=== PATIENT | male | born 1985 | race Caucasian/White ===

== ENCOUNTER 2018-01-09 12:54 | Emergency (ER) | payer OTHER, BC ==
[~2018-01-09] VITALS: Ht 182.9 cm; Wt 92.6 kg
[~2018-01-09 12:54] MED LIST: HYDR-5688 PO; PRED20TA PO; TEMA15CA4 PO
[2018-01-09 12:58] VITALS: TEMP 37; Ht 182.9 cm; Wt 92.6 kg
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
[2018-01-09 14:13] VITALS: BP 135/78; PULSE 72; O2SAT 95
== END 2018-01-09 14:13 | disposition home or self-care (01) ==
LOC: C.EDB 12:55 → C.EDD 14:13
DX: M79.641 Pain in right hand (principal); M25.531 Pain in right wrist; X58.XXXA Exposure to other specified factors, initial encounter; Y92.149 Unspecified place in prison as the place of occurrence of the external cause; Z90.49 Acquired absence of other specified parts of digestive tract

== ENCOUNTER 2023-08-05 16:07 | Inpatient (IN) ==
--- NOTE | 2023-08-05 16:27 | Emergency Department Note ---
History of Present Illness General Chief complaint: Neck Injury/Pain Stated complaint: NECK PAIN Time Seen by Provider: 08/05/23 16:13 History of Present Illness Maximum Pain Intensity: 4 NAME: JOE LARSEN AGE: 38 SEX: M : 1985 ARRIVES VIA: Walk-In INFORMANT: Patient ED PROVIDER(S): PAVEL Leigh, Paola Alejandro MD The patient is a 38-year-old male who arrives to the emergency department after he was seen here on Monday for a disc protrusion at C6-C7 with severe foraminal narrowing. The patient was offered admission at that time which he declined at the time for hunting, and insurance purposes. He was discharged with a tapering dose of prednisone and follow-up instructions to see Dr. Carey. The patient reports his pain is worsening at this time, he is not able to tolerate it at home. He reports the pain is radiating down the posterior left arm with numbness in his third fourth and fifth digits. The patient states he spoke with his insurance prior to coming in today and had confirmation the procedure would be covered, and is here for admission. Home Medications Medication Instructions Recorded Confirmed Type acetaminophen 325 mg tablet 325 mg PO Q6H PRN Pain 01/06/19 03/08/19 History (Tylenol) albuterol sulfate 90 mcg/actuation 2 puff inhalation DAILY PRN 01/06/19 03/08/19 History aerosol inhaler Shortness Of Breath Or Wheezing gabapentin 300 mg capsule 300 mg PO HS 01/06/19 03/08/19 History hydrocodone 5 mg-acetaminophen 325 0.5 mg PO BID 01/06/19 03/08/19 History mg tablet meloxicam 15 mg tablet 7.5 mg PO DAILY PRN Pain 01/06/19 03/08/19 History prednisone 10 mg tablet See Rx Instructions .Route 07/31/23 Rx .COMPLEX #39 tabs Allergies Allergy/AdvReac Type Severity Reaction Status Date / Time No Known Allergies Allergy Severe Verified 03/08/19 14:01 Past Med/Surg History Medical History (Updated 08/05/23 @ 17:27 by PAVEL Curiel) Asthma Surgical History No pertinent past surgical history Family History Other No pertinent family history Social History Smoking Status: Never smoker Preferred Language: Kiswahili Feels Safe at Home: Yes Physical Exam Vital Signs Vital Signs - 24 hr 08/05/23 16:10 08/05/23 17:09 Temperature 36.8 C Temperature Source Temporal Artery Scan Pulse Rate 89 Pulse Rate [Apical] 77 Respiratory Rate 18 18 Respiratory Effort / Characteristics Non-Labored Spontaneous Respiratory Depth Normal Respiratory Pattern Regular Blood Pressure 145/84 H Blood Pressure [Right Arm] 137/105 H Blood Pressure Mean 104 Blood Pressure Mean [Right Arm] 115 Blood Pressure Position [Right Arm] Sitting Pulse Oximetry 99 97 Oxygen Delivery Method Room Air Room Air Sepsis Recent Fever Within 48 Hours No Sepsis New/Unexplained Change in Mental Status No Sepsis Action Taken by Nursing No Action Required VITALS: Vitals are noted on the nurse's note and reviewed by myself. Vital signs stable. GENERAL: This is a 38-year-old male, in no acute distress, nondiaphoretic, well- developed well-nourished. SKIN: The skin was without rashes, erythema, edema, or bruising. NECK: Supple without nuchal rigidity. No lymphadenopathy. No thyromegaly. Cervical spine is nontender. No JVD. HEART: Regular rate and rhythm without murmurs gallops or rubs. LUNGS: Clear to auscultation bilaterally without wheezes, rales or rhonchi. No dullness to percussion. No retractions or accessory muscle use. ABDOMEN: Positive bowel sounds x 4. Normal tympanic percussion. Soft, nontender, without masses or organomegaly. Cancino sign negative. No guarding or rebound tenderness. MUSCULOSKELETAL: No muscle atrophy, erythema, or edema noted. Limited range of motion left shoulder. Atrophy in triceps muscle, strength 4/5. Normal gait. NEURO: Patient was alert and oriented to person place and time. Decreased sensation posterior left arm to elbow. Numbness and tingling in third fourth and fifth digits. Deep tendon reflexes 2+ throughout. Course Consultations Consultation #1: I spoke with Dr. Carey at this time, who agreed that no reimaging is necessary. I will contact medicine for admission, with a potential procedure Monday. Time: 16:49 Medical Decision Making Differential Diagnosis Cervical strain, fracture, cervical disc disease, lymphadenitis, meningitis, tumor, arterial dissection, thyroiditis, parotitis, mastoiditis, neurologic, cardiovascular, as well as other pathologies. Medical Records Attestation: I reviewed the patient's medical records. Home Medications Current Medication List: was personally reviewed by me Laboratory Data 08/05/23 17:11 08/05/23 17:11 Lab Results 08/05/23 Range/Units 17:11 WBC 9.69 (4.8-10.8) K/ul RBC 4.94 (4.70-6.10) M/uL Hgb 15.1 (14.0-18.0) g/dl Hct 43.6 (42.0-52.0) % MCV 88.3 (80.0-100.0) fL MCH 30.6 (25.0-34.0) pg MCHC 34.6 (32.0-36.0) g/dL RDW Std Deviation 38.1 (36.4-46.3) fL RDW Coeff of Herber 11.9 (11.5-14.5) % Plt Count 297 (130-400) K/uL MPV 9.9 (9.4-12.4) fL Immature Gran % (Auto) 0.3 % Neut % (Auto) 56.8 % Lymph % (Auto) 30.4 % [place] % (Auto) 8.7 % Eos % (Auto) 3.3 % Baso % (Auto) 0.5 % Neut # (Auto) 5.50 (1.40-6.50) K/uL Lymph # (Auto) 2.95 (1.20-3.40) K/uL [place] # (Auto) 0.84 H (0.11-0.59) K/uL Eos # (Auto) 0.32 (0.00-0.50) K/uL Baso # (Auto) 0.05 (0.00-0.20) K/uL Immature Gran # (Auto) 0.03 (0.01-0.20) K/uL MDM Narrative The patient is a 38-year-old male who arrives to the emergency department for the above-stated complaint. The patient was seen here on Monday with a positive work-up for a C6-C7 disc protrusion with central canal foraminal narrowing. Patient was previously offered admission for this work-up on Monday which he declined at the time for multiple reasons. Dr. Carey was contacted after assessment of the patient showed increasing numbness and tingling in the left arm extending to the elbow then continuing again in the third fourth and fifth digits. Patient is also experiencing what he thinks is atrophy in the triceps region of the arm. Dr. Carey agreed no reimaging would be required at this time, as we know the nature of the injury. Dr. Carey agreed the patient should be admitted to medicine for pain control and preoperative studies with a pending procedure Monday. The [facility] hospitalist group was contacted for admission, Dr. Fink will admit the patient at this time. Impression & Plan Cervical disc herniation Discharge Plan Visit Data Chief Complaint: Neck Injury/Pain Stated Complaint: NECK PAIN ED Provider: Paola Alejandro ED Midlevel Provider: Inga Mayfield Discharge Problem: Cervical disc herniation Forms Stand Alone Forms: [facility] [place] [employer] Prescriptions Prescriptions: No Action acetaminophen [Tylenol] 325 mg Tablet 325 mg PO Q6H PRN (Reason: Pain) hydrocodone-acetaminophen 5-325 mg tablet 0.5 mg PO BID meloxicam 15 mg tablet 7.5 mg PO DAILY PRN (Reason: Pain) gabapentin 300 mg capsule 300 mg PO HS albuterol sulfate 90 mcg/actuation HFA aerosol inhaler 2 puff inhalation DAILY PRN (Reason: Shortness Of Breath Or Wheezing) prednisone 10 mg tablet See Rx Instructions .ROUTE .COMPLEX Qty: 39 0RF Rx Instructions: 50mg x3d, 40mg x3d, 30mg x2d, 20mg x2d, 10mg x2d Referrals Referrals: Shaheen Jones MD [Primary Care Provider] -
[2023-08-05 17:22] LABS: Basophils # (auto) 0.05 K/uL (0.00-0.20); Basophils % (auto) 0.5 %; Eosinophils # (auto) 0.32 K/uL (0.00-0.50); Eosinophils % (auto) 3.3 %; Hematocrit (blood only) 43.6 % (42.0-52.0); Hemoglobin 15.1 g/dl (14.0-18.0); Immature Granulocytes # (auto) 0.03 K/uL (0.01-0.20); Immature Granulocytes % (auto) 0.3 %; Lymphocytes # (auto) 2.95 K/uL (1.20-3.40); Lymphocytes % (auto) 30.4 %; Mean Corpuscular Hemoglobin 30.6 pg (25.0-34.0); Mean Corpuscular Hgb Conc 34.6 g/dL (32.0-36.0); Mean Corpuscular Volume 88.3 fL (80.0-100.0); Mean Platelet Volume 9.9 fL (9.4-12.4); Monocytes # (auto) 0.84 K/uL (0.11-0.59); Monocytes % (auto) 8.7 %; Neutrophils % (auto) 56.8 %; Platelet Count 297 K/uL (130-400); RDW Coefficient of Variation 11.9 % (11.5-14.5); RDW Standard Deviation 38.1 fL (36.4-46.3); Red Blood Count 4.94 M/uL (4.70-6.10); White Blood Count 9.69 K/ul (4.8-10.8)
[2023-08-05 17:41] LABS: Albumin Globulin Ratio 1.7 (0.9-2); Albumin Level 4.5 gm/dl (3.4-5.0); BUN Creatinine Ratio 16.7 (10-20); Bilirubin,Total 0.8 mg/dl (0.2-1.0); Calcium 9.7 mg/dl (8.6-10.3); Creatinine Clr Calc Pharmacy 115.6 ml/min; Est GFR (African American) 116.6 ml/min; Est GFR (Non-African American) 100.6 ml/min; Globulin 2.6 gm/dl (2.5-4.0); Potassium 3.9 mmol/L (3.5-5.1); Total Protein 7.1 gm/dl (6.0-8.3)
--- NOTE | 2023-08-05 17:55 | History & Physical Report ---
Date of Service August 05, 2023 Assessment & Plan (1) Herniation of intervertebral disc at C6-C7 level: (2) Asthma: (3) Tobacco abuse: Plan This is a 38-year-old male who has a significant past medical history of tobacco abuse, daily alcohol use and asthma who presents to ED secondary to worsening neck pain and left upper extremity paresthesias. C Spine MRI -- IMPRESSION: 1. Left central/foraminal disc protrusion at C6- C7 resulting in severe left foraminal narrowing. Recommend correlation for symptoms.2. Otherwise, degenerative change of the cervical spine as described.3. Empty sella. Recommend clinical correlation. Herniation of intervertebral disc at C6-C7 Neck Pain with paresthesia admit to medical consult ortho spine Dr. Carey plan for OR on monday, will make NPO after midnight encourage ambulation for dvt ppx prn hydrocodone for moderate pain, Prn IV morphine for severe pain cbc, cmp, ptt, pt/inr ordered CXR, EKG obtain echo -pt currently undergoing cardiac w/u as OP for chest pain with FH of premature CAD, scheduled for stress test in august, may need to discuss with cards for clearance he states prior chest pain he was experiencing has mostly resolved, currently able to jog 1 mile w/o discomfort Tobacco abuse encourage cessation nicotine patch offered, pt wishing to go w/o for now Alcohol abuse pt drinks 6 beers/day AWSS per protocol daily thiamine, folic acid Asthma continue breo, prn albuterol no acute exac DVT ppx: encourage ambulation, low risk FULL CODE PCP: Javier Prince Pt was seen and examined in collaboration with Dr. Fink, please see addendum History of Present Illness Chief Complaint: neck pain. Primary Care Provider: Shaheen Jones MD This is a 38-year-old male who has a significant past medical history of tobacco abuse, daily alcohol use and asthma who presents to ED secondary to worsening neck pain and left upper extremity paresthesias. 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 He states approximately 1 week ago he was involved in activity that may have strained his neck at work. Initially he did not have symptoms until 2 days later. He woke up and thought he may be, "slept on his neck wrong." Otherwise he has no known trauma or injury. He was seen and evaluated in ER on 07/31/2023 secondary to significant neck pain and underwent MRI for C-spine which revealed a left central/foraminal disc protrusion at C6-C7 resulting in severe left foraminal narrowing. At that time he received IV dexamethasone and was discharged home on oral prednisone after declining admission. Due to persistent symptoms despite treatment at home he opted to return to ED for further evaluation. He states he continues to have left-sided neck discomfort, elevated left shoulder compared to the right, medial aspect of left arm numbness and tingling that extends to fingers 3 and 5. Certain movements make pain significantly worse. He has been using [id number] lidocaine patches, as needed diclofenac and hydrocodone that he has for his chronic back pain. The hydrocodone has been helpful keeping pain manageable. He also currently is on a prednisone taper which she was prescribed on 07/31/2023. Of significance patient follows with [facility] family practice. He was seen and evaluated by [facility] cardiology at the end of June due to chest discomfort and shortness of breath. He has a strong family history of coronary artery disease with his grandfather having an LA in his 30s and his father suffering from collapse in his 50s of unknown etiology. He states the chest discomfort has significantly lessened over the last month. He describes it in his left chest wall as a, "deep." He states typically it comes on for 10 to 40 seconds before resolving on its own. It can occur at rest or with exertion. He only notices it 1-2 times a week now. He feels it likely is related to stress. It is not related to exertion. He recently has tried to increase his activity level and has been jogging a mile and does not notice any discomfort, shortness of breath, diaphoresis nausea or sweating. He is scheduled as an outpatient in August to undergo exercise stress testing. Allergies Allergy/AdvReac Type Severity Reaction Status Date / Time No Known Allergies Allergy Severe Verified 03/08/19 14:01 Home Medications Medication Instructions Recorded Confirmed Type acetaminophen 325 mg tablet 325 mg PO Q6H PRN Pain 01/06/19 08/05/23 History (Tylenol) albuterol sulfate 90 mcg/actuation 2 puff inhalation DAILY PRN 01/06/19 08/05/23 History aerosol inhaler Shortness Of Breath Or Wheezing hydrocodone 5 mg-acetaminophen 325 0.5 mg PO BID 01/06/19 08/05/23 History mg tablet meloxicam 15 mg tablet 7.5 mg PO DAILY PRN Pain 01/06/19 08/05/23 History prednisone 10 mg tablet See Rx Instructions .Route 07/31/23 08/05/23 Rx .COMPLEX #39 tabs fluticasone furoate 200 1 inh inhalation DAILY 08/05/23 08/05/23 History mcg-vilanterol 25 mcg/dose inhalation powder (Breo Ellipta) Past Med/Surg History Medical History (Updated 08/05/23 @ 17:45 by Sarah Elizalde PA-C) Alcohol abuse Tobacco abuse Asthma Surgical History (Updated 08/05/23 @ 17:42 by Sarah Elizalde PA-C) History of repair of pyloric stenosis History of appendectomy Family History Grandfather Coronary heart disease in his 30s Social History (Updated 08/05/23 @ 17:43 by Sarah Elizalde PA-C) Smoking Status: Current every day smoker Tobacco Type: Cigarettes packs per day: 0.5; Cigarettes Per Day: 10; Second Hand Exposure: No; Do You Dip or Chew Tobacco: Yes; Tobacco Cessation Education Requested by Patient: No Hx Alcohol Use: Yes Alcohol type: beer Alcohol type Comment: 6 beer/day Alcohol Intake Frequency: 4 or More x per/Week Hx Substance Use: No Preferred Language: South African Communication Ability: Effective Commercial Credit Reviewer Required: No Beliefs That Will Affect Care: None marital status: Current Living Situation: Spouse and Family Other Information That Helps Us Care for You: No Feels Safe at Home: Yes Safety Concerns: Feels Safe At This Time Assistive Devices: Contacts Review of Systems Review of Systems: All systems reviewed & are unremarkable except as noted in HPI & below Physical Exam Physical Exam: Constitutional: WD/WN, vitals as above, NAD, sitting up in bed, pleasant, conversing easily Head: Normocephalic, Atraumatic Eyes: PERRL, conjunctivae normal, anicteric sclerae ENMT: external ear and nose normal, oropharynx normal Neck: trachea midline, no thyromegaly normal visual inspection Respiratory: normal respiratory effort, lungs clear to auscultation, no wheeze, rales, rhonchi. Normal insp/exp effort, no accessory muscle use Cardiovascular: RRR, no murmur, no edema Vessels: no JVD or carotid bruit Chest: normal inspection of chest Abdomen: normal bowel sounds, soft, nontender, no hepatosplenomegaly Musculoskeletal: no cyanosis or clubbing, Skin: no rashes, warm and dry normal turgor Neurologic: PERRL, EOMI, accommodation nl, no face palsy, no dysarthria CN's II-XI intact bilaterally and moves all extremities Psychiatric: A+Ox3, euthymic affect Lymphatic: no cervical or axillary lymphadenopathy : deferred Results & Data Results & Data Vital Signs (Past 12 Hours) Vital Signs Temp Pulse Pulse Resp BP BP Pulse Ox 08/05/23 17:09 77 18 137/105 H 97 08/05/23 16:10 36.8 C 89 18 145/84 H 99 O2 Del Method 08/05/23 17:09 Room Air 08/05/23 16:10 Room Air Diagnostic Findings EXAM: MR Cervical Spine Without Intravenous Contrast CLINICAL HISTORY: Reason for exam: Left sided neck pain, LUE weakness. TECHNIQUE: Magnetic resonance images of the cervical spine without intravenous contrast in multiple planes. COMPARISON: None. FINDINGS: Vertebrae: See below. Spinal cord: Unremarkable. Normal signal. Soft tissues: Unremarkable. DISCS/SPINAL CANAL/NEURAL FORAMINA: C2-C3: Disc bulge with endplate osteophytes, uncovertebral hypertrophy, and facet arthrosis. No significant spinal canal stenosis. Mild left foraminal narrowing. C3-C4: Disc bulge with uncovertebral hypertrophy and facet arthrosis. No significant spinal canal stenosis. Mild right and moderate left foraminal narrowing. C4-C5: Disc bulge with endplate osteophytes, uncovertebral hypertrophy, facet arthrosis. Mild spinal canal stenosis. Mild to moderate bilateral foraminal narrowing. C5-C6: Disc bulge, uncovertebral hypertrophy, and facet arthrosis. Mild spinal canal stenosis. Mild right and moderate left foraminal narrowing. C6-C7: Disc bulge with annular fissure and superimposed left central/foraminal disc protrusion. Uncovertebral hypertrophy and facet arthrosis. Moderate spinal canal stenosis. Mild right and severe left foraminal narrowing. C7-T1: Unremarkable. No significant disc disease. No stenosis. Other findings: Empty sella. IMPRESSION: 1. Left central/foraminal disc protrusion at C6-C7 resulting in severe left foraminal narrowing. Recommend correlation for symptoms. 2. Otherwise, degenerative change of the cervical spine as described. 3. Empty sella. Recommend clinical correlation. COVID- Results Results COVID-19 Adm Lab Results: RBC 4.94 M/uL (4.70-6.10) 08/05/23 WBC 9.69 K/ul (4.8-10.8) 08/05/23 Hgb 15.1 g/dl (14.0-18.0) 08/05/23 Hct 43.6 % (42.0-52.0) 08/05/23 Plt Count 297 K/uL (130-400) 08/05/23 Neutrophils (%) (Auto) 56.8 % 08/05/23 Lymphocytes (%) (Auto) 30.4 % 08/05/23 Monocytes # (Auto) 0.84 K/uL (0.11-0.59) H 08/05/23 Eosinophils # (Auto) 0.32 K/uL (0.00-0.50) 08/05/23 Immature Granulocyte % (Auto) 0.3 % 08/05/23 Neutrophils # (Auto) 5.50 K/uL (1.40-6.50) 08/05/23 Lymphocytes # (Auto) 2.95 K/uL (1.20-3.40) 08/05/23 Monocytes # (Auto) 0.84 K/uL (0.11-0.59) H 08/05/23 Eosinophils # (Auto) 0.32 K/uL (0.00-0.50) 08/05/23 Basophils # (Auto) 0.05 K/uL (0.00-0.20) 08/05/23 Immature Granulocyte # (Auto) 0.03 K/uL (0.01-0.20) 3 Na 140 mmol/L (136-145) 08/05/23 K 3.9 mmol/L (3.5-5.1) 08/05/23 Cl 106 mmol/L (98-107) 08/05/23 CO2 28 mmol/L (21-32) 08/05/23 Anion Gap 6 (3-11) 08/05/23 BUN 16 mg/dl (6-23) 08/05/23 Creatinine 0.96 mg/dl (0.6-1.4) 08/05/23 BUN/Creatinine Ratio 16.7 (10-20) 08/05/23 Glucose Level 82 mg/dl (70-99(Fasting)) 08/05/23 Ca 9.7 mg/dl (8.6-10.3) 08/05/23 Total Bilirubin 0.8 mg/dl (0.2-1.0) 08/05/23 AST/SGOT 29 U/L (13-39) 08/05/23 ALT/SGPT 36 U/L (7-52) 08/05/23 Alkaline Phosphatase 45 U/L (34-104) 08/05/23 Total Protein 7.1 gm/dl (6.0-8.3) 08/05/23 Albumin 4.5 gm/dl (3.4-5.0) 08/05/23 Globulin 2.6 gm/dl (2.5-4.0) 08/05/23 Albumin/Globulin Ratio 1.7 (0.9-2) 08/05/23 Chest X-Ray 08/05/23 Code Status & VTE Plan Code Status FULL CODE VTE Prophylaxis Plan VTE Prophylaxis will be ordered: No Reason for no VTE drug order: Treatment not indicated Supervising Physician Co-Signing Physician Notes Pt seen and examined by myself, Izzy Fink MD on the day of service. Care was coordinated with Sarah Elizalde PA-C. 38yoM with cervical disc herniation and weakness in the left arm. Was in the ED a few days ago and declined admission, now symptoms worsening and returning for admission. On exam, AAOx3 with noted weakness in the left arm and forearm. Ortho spine consult, pain control. Otherwise as above.
--- NOTE | 2023-08-05 18:12 | XRay Report ---
XR chest 1V portable HISTORY: preoperative COMPARISON: Chest 01/06/2019. FINDINGS: The lungs are clear. Cardiac silhouette is normal in size. No pleural effusions. No pneumot horax. IMPRESSION: No acute process. ACT 112: Negative or not required by law. Electronically signed by: Marky Riley M.D. 08/05/2023 6:11 PM
[2023-08-05] MEDS ORDERED: POLYETHYLENE (MIRALAX) 17 GM PACK PO PRN (18:19)
[2023-08-05] MEDS ORDERED: ONDANSETRON INJ 2 MG/ML 2 ML VIAL IV PRN (18:19)
[2023-08-05] MEDS ORDERED: ACETAMINOPHEN 325 MG TAB PO PRN (18:19)
[2023-08-05] MEDS ORDERED: MAGNESIUM HYDROXIDE SUSP 30 ML UDC PO PRN (18:19)
[2023-08-05] MEDS ORDERED: ALUMINUM/MAGNESIUM SUSP 30 ML UDC PO PRN (18:19)
[2023-08-05] MEDS ORDERED: ALBUTEROL HFA 8 GM INHALER INH PRN (18:19)
[2023-08-05] MEDS ORDERED: MoRPHine SULFATE 4 MG/ML 1 ML CARP\\VIAL IV PRN (18:19)
[2023-08-05] MEDS: HYDROCODONE/ACETAMOPHEN 5/325MG TAB PO PRN (21:11)
[2023-08-06] MEDS: HYDROCODONE/ACETAMOPHEN 5/325MG TAB PO PRN ×3 (04:34→19:53)
--- NOTE | 2023-08-06 07:59 | Electrocardiogram Report ---
Test Reason : Blood Pressure : / mmHG Vent. Rate : 078 BPM Atrial Rate : 078 BPM P-R Int : 186 ms QRS Dur : 094 ms QT Int : 368 ms P-R-T Axes : 000 105 137 degrees QTc Int : 419 ms Normal sinus rhythm Incomplete right bundle branch block Rightward axis Normal ECG No previous ECGs available Confirmed by Des Perez ([id number]) on 08/06/2023 7:59:04 AM Referred By: REFERRED SELF Confirmed By:Des Perez
[2023-08-06 08:28] LABS: Basophils # (auto) 0.05 K/uL (0.00-0.20); Basophils % (auto) 0.8 %; Eosinophils # (auto) 0.36 K/uL (0.00-0.50); Eosinophils % (auto) 5.5 %; Hematocrit (blood only) 44.5 % (42.0-52.0); Hemoglobin 14.9 g/dl (14.0-18.0); Immature Granulocytes # (auto) 0.01 K/uL (0.01-0.20); Immature Granulocytes % (auto) 0.2 %; Lymphocytes # (auto) 2.21 K/uL (1.20-3.40); Lymphocytes % (auto) 33.9 %; Mean Corpuscular Hemoglobin 30.6 pg (25.0-34.0); Mean Corpuscular Hgb Conc 33.5 g/dL (32.0-36.0); Mean Corpuscular Volume 91.4 fL (80.0-100.0); Mean Platelet Volume 10.1 fL (9.4-12.4); Monocytes # (auto) 0.46 K/uL (0.11-0.59); Monocytes % (auto) 7.1 %; Neutrophils # (auto) 3.43 K/uL (1.40-6.50); Neutrophils % (auto) 52.5 %; Platelet Count 256 K/uL (130-400); RDW Coefficient of Variation 11.8 % (11.5-14.5); RDW Standard Deviation 39.8 fL (36.4-46.3); Red Blood Count 4.87 M/uL (4.70-6.10); White Blood Count 6.52 K/ul (4.8-10.8)
[2023-08-06 08:46] LABS: Alanine Aminotransferase 32 U/L (7-52); Albumin Globulin Ratio 1.8 (0.9-2); Albumin Level 4.2 gm/dl (3.4-5.0); Alkaline Phosphatase 41 U/L (34-104); Anion Gap 6 (3-11); Aspartate Aminotransferase 23 U/L (13-39); Bilirubin,Total 1.4 mg/dl (0.2-1.0); Blood Urea Nitrogen 15 mg/dl (6-23); Calcium 9.2 mg/dl (8.6-10.3); Carbon Dioxide 25 mmol/L (21-32); Chloride 108 mmol/L (98-107); Creatinine Clr Calc Pharmacy 126.1 ml/min; Est GFR (African American) 127.2 ml/min; Est GFR (Non-African American) 109.7 ml/min; Globulin 2.3 gm/dl (2.5-4.0); Glucose 151 mg/dl (70-99(Fasting)); Magnesium 2.1 mg/dl (1.7-2.4); Potassium 4.3 mmol/L (3.5-5.1); Sodium 139 mmol/L (136-145); Total Protein 6.5 gm/dl (6.0-8.3)
[2023-08-06 08:54] LABS: Troponin I High Sensitivity < 2.3 pg/ml (0-20)
[2023-08-06 08:55] LABS: Partial Thromboplastin Ratio 0.9; Partial Thromboplastin Time 25.7 Seconds (21.0-31.0); Prothrombin Time 10.7 Seconds (9.0-12.0)
[2023-08-06] MEDS: FOLIC ACID 1 MG TAB PO SCH (09:01)
[2023-08-06] MEDS: THIAMINE HCL 100 MG TAB PO SCH (09:01)
[2023-08-06] MEDS: predniSONE 10 MG TABLET PO SCH (09:01)
--- NOTE | 2023-08-06 11:30 | Orthopedic Consultation ---
Date of Consultation August 06, 2023 Assessment & Plan (1) Herniation of intervertebral disc at C6-C7 level: Assessment her nucleus pulposus C6-C7. MRI of the cervical spine performed earlier this week 08/04/[facility] does demonstrate evidence of a massive foraminal disc ration C6-C7 on the left with significant neuroforaminal encroachment. This is consistent with his clinical presentation. In light of his severe pain and progressive neuro deficit and recommending urge nt surgical intervention. He would require an anterior cervical discectomy and fusion C6-C7. Risk benefits pros cons and alternatives were outlined detail. Risk include but not limited to anesthesia blindness stroke paralysis nerve damage blood loss requiring transfusion infection requiring reoperation dysphonia dysphagia. Benefits will be would be marked improvement of his radiculopathy and in time improvement of his strength. He is currently undergoing cardiac work-up. We will make him n.p.o. after midnight and plan for surgery in the a.m. History of Present Illness Reason for Consultation: Left arm pain and weakness Attending Physician: Katie Henderson MD History of Present Illness This is a 38-year-old male that presents the emergency room now for the second time with marked severe left arm pain and progressive weakness. Symptoms have been worsening for the past several weeks. Denies any specific trauma fall or event. Radiates in the left interscapular region down the left arm into the small and ring finger. He is noting significant weakness to the left triceps and left hand. He is right-hand dominant. The right upper extremities asymptomatic. He is requiring narcotic pain medications to provide even modest relief. Allergies Allergy/AdvReac Type Severity Reaction Status Date / Time No Known Allergies Allergy Severe Verified 03/08/19 14:01 Home Medications Medication Instructions Recorded Confirmed Type acetaminophen 325 mg tablet 325 mg PO Q6H PRN Pain 01/06/19 08/05/23 History (Tylenol) albuterol sulfate 90 mcg/actuation 2 puff inhalation DAILY PRN 01/06/19 08/05/23 History aerosol inhaler Shortness Of Breath Or Wheezing hydrocodone 5 mg-acetaminophen 325 0.5 mg PO BID 01/06/19 08/05/23 History mg tablet meloxicam 15 mg tablet 7.5 mg PO DAILY PRN Pain 01/06/19 08/05/23 History prednisone 10 mg tablet See Rx Instructions .Route 07/31/23 08/05/23 Rx .COMPLEX #39 tabs fluticasone furoate 200 1 inh inhalation DAILY 08/05/23 08/05/23 History mcg-vilanterol 25 mcg/dose inhalation powder (Breo Ellipta) Patient History Medical History (Updated 08/06/23 @ 11:29 by Khari Carey DO) Alcohol abuse Tobacco abuse Asthma Surgical History (Updated 08/05/23 @ 17:42 by Sarah Elizalde PA-C) History of repair of pyloric stenosis History of appendectomy Family History Grandfather Coronary heart disease in his 30s Social History (Updated 08/05/23 @ 17:43 by Sarah Elizalde PA-C) Smoking Status: Current every day smoker Tobacco Type: Cigarettes packs per day: 0.5; Cigarettes Per Day: 10; Second Hand Exposure: No; Do You Dip or Chew Tobacco: Yes; Tobacco Cessation Education Requested by Patient: No Hx Alcohol Use: Yes Alcohol type: beer Alcohol type Comment: 6 beer/day Alcohol Intake Frequency: 4 or More x per/Week Hx Substance Use: No Preferred Language: Korean Communication Ability: Effective Heel Seat Pounder Required: No Beliefs That Will Affect Care: None marital status: Current Living Situation: Spouse and Family Other Information That Helps Us Care for You: No Feels Safe at Home: Yes Safety Concerns: Feels Safe At This Time Assistive Devices: Contacts Physical Exam Physical Exam: On exam patient is in bed at this time has markedly positive Spurling's to the left. No gross Lhermitte's phenomenon. Is significant strength deficits to the left tricep compared to the right with evidence of focal atrophy. Grasp is also markedly diminished on the left compared to the right with deep tendon reflexes diminished. No evidence Rufina sign. There is sensory deficits to the left upper extremity. Results & Data Vital Signs (Past 12 Hours) Vital Signs Temp Pulse Resp BP Pulse Ox O2 Del Method 08/06/23 07:21 36.9 C 80 18 126/83 97 Room Air 08/06/23 04:33 36.7 C 63 16 108/71 96 Room Air
[2023-08-06] MEDS ORDERED: HYDROmorphone INJ 0.5 MG/0.5 ML SYR IV PRN (11:32)
[2023-08-06] MEDS: FLUTICASONE/VILANTEROL 100/25MCG 14 PUFFS/INHALER INH SCH (11:33)
--- NOTE | 2023-08-06 11:36 | Hospitalist Progress Note ---
Date of Service August 06, 2023 Assessment & Plan (1) Herniation of intervertebral disc at C6-C7 level: (2) Asthma: (3) Tobacco abuse: Plan Mr. Aggarwal is a 38-year-old male who has a significant past medical history of tobacco abuse, daily alcohol use and asthma who presents to ED secondary to worsening neck pain and left upper extremity paresthesias. C Spine MRI -- IMPRESSION: 1. Left central/foraminal disc protrusion at C6- C7 resulting in severe left foraminal narrowing. Recommend correlation for symptoms.2. Otherwise, degenerative change of the cervical spine as described.3. Empty sella. Recommend clinical correlation. #Herniation of intervertebral disc at C6-C7 #Neck Pain with paresthesia Ortho consult placed, NPO at midnight for possible surgical intervention prn hydrocodone for moderate pain, Prn IV morphine for severe pain #History of atypical chest pain -EKG with NSR, incomplete RBBB, RAD -No chest pain with exertion, usually reproducible to palpation, runs 1 mile daily RCRI at this time 0 (no CHF, no hx of [place], CVD, no insulin, Cr <1.0) ECHO ordered, will assess -Given low RCRI and functional status preop stress testing very likely to be unnecessary, however, will determine next steps contingent on echo ordered. #Tobacco abuse encourage cessation nicotine patch offered, pt wishing to go w/o for now #Alcohol abuse pt drinks 6 beers/day AWSS per protocol daily thiamine, folic acid Asthma continue breo, prn albuterol no acute exac DVT ppx: encourage ambulation, low risk; SCDs FULL CODE PCP: Javier Prince Admission and Anticipated Discharge Date Admission Date: August 05, 2023 Subjective NAEO, reports feeling stable, denies any active pain at this time Review of Systems Review of Systems: All systems reviewed & are unremarkable except as noted in Subjective Physical Exam Constitutional: WD/WN, vitals as above Respiratory: normal respiratory effort, lungs clear to auscultation Cardiovascular: RRR, no murmur, no edema Results & Data Results & Data Vital Signs (Past 12 Hours) Vital Signs Temp Pulse Resp BP Pulse Ox O2 Del Method 08/06/23 07:21 36.9 C 80 18 126/83 97 Room Air 08/06/23 04:33 36.7 C 63 16 108/71 96 Room Air Laboratory Results Short CBC 08/05/23 08/06/23 Range/Units 17:11 08:00 WBC 9.69 6.52 (4.8-10.8) K/ul Hgb 15.1 14.9 (14.0-18.0) g/dl Hct 43.6 44.5 (42.0-52.0) % Plt Count 297 256 (130-400) K/uL BMP 08/05/23 08/06/23 17:11 08:00 Sodium 140 139 Potassium 3.9 4.3 Chloride 106 108 H Carbon Dioxide 28 25 BUN 16 15 Creatinine 0.96 0.88 Glucose 82 151 H Calcium 9.7 9.2 Liver Function 08/05/23 08/06/23 Range/Units 17:11 08:00 Total Bilirubin 0.8 1.4 H D (0.2-1.0) mg/dl AST 29 23 (13-39) U/L ALT 36 32 (7-52) U/L Alkaline Phosphatase 45 41 (34-104) U/L Albumin 4.5 4.2 (3.4-5.0) gm/dl Medications Administered Home Medications Medication Instructions Recorded Confirmed Last Taken acetaminophen 325 mg tablet 325 mg PO Q6H PRN Pain 01/06/19 08/05/23 03/07/19 (Tylenol) 650 mg albuterol sulfate 90 mcg/actuation 2 puff inhalation DAILY PRN 01/06/19 08/05/23 03/07/19 aerosol inhaler Shortness Of Breath Or Wheezing hydrocodone 5 mg-acetaminophen 325 0.5 mg PO BID 01/06/19 08/05/23 03/08/19 mg tablet meloxicam 15 mg tablet 7.5 mg PO DAILY PRN Pain 01/06/19 08/05/23 03/07/19 prednisone 10 mg tablet See Rx Instructions .Route 07/31/23 08/05/23 Unknown .COMPLEX #39 tabs fluticasone furoate 200 1 inh inhalation DAILY 08/05/23 08/05/23 Unknown mcg-vilanterol 25 mcg/dose inhalation powder (Breo Ellipta) Active Medications Generic Name Dose Route Start Last Admin Trade Name Freq PRN Reason Stop Dose Admin Hydrocodone Bitart/Acetaminophen 1 tab 08/05/23 18:19 08/06/23 04:34 Hydrocodone/Acetamophen 5/325mg Tab PO 08/19/23 18:18 1 tab Q4H PRN Administration moderate pain 5,6,7 Albuterol 2 puffs 08/05/23 18:19 08/05/23 22:43 Albuterol Hfa 8 Gm Inhaler INH 09/04/23 18:18 2 puffs DAILY PRN Administration Shortness Of Breath Or Wheezing Folic Acid 1 mg 08/06/23 09:00 08/06/23 09:01 Folic Acid 1 Mg Tab PO 09/05/23 08:59 1 mg QAM PAUL Administration Prednisone 40 mg 08/06/23 09:00 08/06/23 09:01 Prednisone 10 Mg Tablet PO 08/13/23 08:59 40 mg DAILY PAUL Administration Taper Thiamine HCl 100 mg 08/06/23 09:00 08/06/23 09:01 Thiamine Hcl 100 Mg Tab PO 09/05/23 08:59 100 mg QAM PAUL Administration
[2023-08-07] MEDS: HYDROCODONE/ACETAMOPHEN 5/325MG TAB PO PRN (06:46)
[2023-08-07] MEDS: FOLIC ACID 1 MG TAB PO SCH (08:00)
[2023-08-07] MEDS: THIAMINE HCL 100 MG TAB PO SCH (08:00)
--- NOTE | 2023-08-07 08:23 | Hospitalist Progress Note ---
Date of Service August 07, 2023 Assessment & Plan (1) Herniation of intervertebral disc at C6-C7 level: (2) Asthma: (3) Tobacco abuse: Plan Mr. Aggarwal is a 38-year-old male who has a significant past medical history of tobacco abuse, daily alcohol use and asthma who presents to ED secondary to worsening neck pain and left upper extremity paresthesias. C Spine MRI -- IMPRESSION: 1. Left central/foraminal disc protrusion at C6- C7 resulting in severe left foraminal narrowing. Recommend correlation for symptoms.2. Otherwise, degenerative change of the cervical spine as described.3. Empty sella. Recommend clinical correlation. #Herniation of intervertebral disc at C6-C7 #Neck Pain with paresthesia POD 0 s/p #1 anterior cervical discectomy with bilateral foraminotomies C6-C7. #2 anterior cervical arthrodesis C6-C7. #3 placement of spiral 9 mm cage filled with I factor C6-C7. #4 placement of K2 M plate and screws across C6-C7. prn hydrocodone for moderate pain, Prn IV morphine for severe pain Monitor for post-op anemia, cbc in am PT/OT #History of atypical chest pain -EKG with NSR, incomplete RBBB, RAD -No chest pain with exertion, usually reproducible to palpation, runs 1 mile daily RCRI at this time 0 (no CHF, no hx of [place], CVD, no insulin, Cr <1.0) ECHO normal #Tobacco abuse encourage cessation nicotine patch offered, pt wishing to go w/o for now #Alcohol abuse pt drinks 6 beers/day AWSS per protocol daily thiamine, folic acid Asthma continue breo, prn albuterol no acute exac DVT ppx: encourage ambulation, low risk; SCDs FULL CODE PCP: Javier Prince Admission and Anticipated Discharge Date Admission Date: August 05, 2023 Subjective NAEO,resting s/p procedure Physical Exam Constitutional: WD/WN, vitals as above Respiratory: normal respiratory effort Results & Data Results & Data Vital Signs (Past 12 Hours) Vital Signs Temp Pulse Resp BP Pulse Ox O2 Del Method 08/07/23 08:07 36.8 C 80 16 124/81 96 Room Air Medications Administered Home Medications Medication Instructions Recorded Confirmed Last Taken acetaminophen 325 mg tablet 325 mg PO Q6H PRN Pain 01/06/19 08/05/23 03/07/19 (Tylenol) 650 mg albuterol sulfate 90 mcg/actuation 2 puff inhalation DAILY PRN 01/06/19 08/05/23 03/07/19 aerosol inhaler Shortness Of Breath Or Wheezing hydrocodone 5 mg-acetaminophen 325 0.5 mg PO BID 01/06/19 08/05/23 03/08/19 mg tablet meloxicam 15 mg tablet 7.5 mg PO DAILY PRN Pain 01/06/19 08/05/23 03/07/19 prednisone 10 mg tablet See Rx Instructions .Route 07/31/23 08/05/23 Unknown .COMPLEX #39 tabs fluticasone furoate 200 1 inh inhalation DAILY 08/05/23 08/05/23 Unknown mcg-vilanterol 25 mcg/dose inhalation powder (Breo Ellipta) oxycodone 5 mg tablet 5 mg PO Q6H PRN pain #30 tabs 08/07/23 Unknown tramadol 50 mg tablet 50 mg PO Q6H PRN pain, moderate 08/07/23 Unknown #30 tabs Active Medications Generic Name Dose Route Start Last Admin Trade Name Freq PRN Reason Stop Dose Admin Albuterol 2 puffs 08/05/23 18:19 08/05/23 22:43 Albuterol Hfa 8 Gm Inhaler INH 09/04/23 18:18 2 puffs DAILY PRN Administration Shortness Of Breath Or Wheezing Fluticasone/Vilanterol 1 puffs 08/06/23 09:15 08/07/23 13:05 Fluticasone/Vilanterol 100/25mcg 14 Puffs/Inhaler INH 09/05/23 09:14 Not Given DAILY PAUL Folic Acid 1 mg 08/06/23 09:00 08/07/23 08:00 Folic Acid 1 Mg Tab PO 09/05/23 08:59 Not Given QAM PAUL Hydromorphone HCl 0.5 mg 08/07/23 12:26 08/07/23 12:59 Hydromorphone Inj 0.5 Mg/0.5 Ml Syr IV 08/21/23 12:25 0.5 mg Q3H PRN Administration MODERATE Pain (Scale 4,5,6) & Pre PT Hydromorphone HCl 1 mg 08/07/23 12:26 08/07/23 16:51 Hydromorphone Inj 1 Mg/Ml Syringe IV 08/21/23 12:25 1 mg Q3H PRN Administration SEVERE Pain (Scale 7,8,9,10) Lactated Ringer's 1,000 mls @ 150 mls/hr 08/07/23 12:26 08/07/23 12:58 Lr IV 09/06/23 12:25 150 mls/hr .Q6H40M PAUL Administration Cefazolin Sodium 2,000 mg in 15 mls @ 3.75 mls/min 08/07/23 17:00 08/07/23 16:51 Ancef 2000mg IV 08/08/23 01:03 3.75 mls/min Q8H PAUL Administration Protocol Dexamethasone 6 mg/ Syringe 1.5 mls @ 1 mls/min 08/07/23 13:00 08/07/23 13:01 IV 08/08/23 05:02 1 mls/min Q8H PAUL Administration Oxycodone HCl 5 - 10 mg 08/07/23 12:26 08/07/23 14:43 Oxycodone Hcl Ir 5 Mg Tab (Immediate Release) PO 08/21/23 12:25 10 mg Q4H PRN Administration Pain & Pre PT Thiamine HCl 100 mg 08/06/23 09:00 08/07/23 08:00 Thiamine Hcl 100 Mg Tab PO 09/05/23 08:59 Not Given QA PAUL
[2023-08-07] MEDS ORDERED: PROPOFOL IV EMULSION 10 MG/ML 20 ML VIAL IV ONE (08:51)
[2023-08-07] MEDS ORDERED: NEOSTIGMINE METHYLSULFATE 1 MG/ML 10ML VIAL ONE (08:51)
[2023-08-07] MEDS ORDERED: LIDOCAINE 2% 2 ML VIAL/AMP(20MG/ML) INFIL ONE (08:51)
[2023-08-07] MEDS ORDERED: ROCURONIUM BROMIDE 10 MG/ML 5 ML VIAL IV ONE ×2 (08:51→09:59)
[2023-08-07] MEDS ORDERED: HYDROmorphone INJ 2 MG/ML SYR/VIAL ONE (08:51)
[2023-08-07] MEDS ORDERED: GLYCOPYRROLATE 0.2 MG/ML VIAL ONE (08:51)
[2023-08-07] MEDS ORDERED: DEXAMETHASONE SOD INJ 4 MG/ML VIAL ONE ×2 (08:51→09:09)
[2023-08-07] MEDS ORDERED: ONDANSETRON INJ 2 MG/ML 2 ML VIAL ONE ×2 (08:51→09:09)
[2023-08-07] MEDS ORDERED: MIDAZOLAM HCL 1 MG/ML 2ML VIAL ONE (08:51)
[2023-08-07] MEDS ORDERED: fentaNYL citrate PF 100 MCG/2 ML VIAL ONE (08:51)
[2023-08-07] MEDS ORDERED: ATROPINE SULFATE 0.1 MG/ML 10ML SYR IV PRN (09:04)
[2023-08-07] MEDS ORDERED: ePHEDrine sulfate 50 MG/ML AMP IV PRN (09:04)
[2023-08-07] MEDS ORDERED: ONDANSETRON INJ 2 MG/ML 2 ML VIAL IV PRN ×2 (09:04→12:26)
--- NOTE | 2023-08-07 09:04 | Anesthesiology Consultation ---
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 Surgery Operation Date: 08/07/23 07:00 Proposed Procedures p C6-C7 Anterior Cervical Discectomy Fusion - Khari Carey DO Height/Weight Height: 6 ft Weight: 89.5 kg Allergies Allergy/AdvReac Type Severity Reaction Status Date / Time No Known Allergies Allergy Severe Verified 03/08/19 14:01 Medications Home Medications Medication Instructions Recorded Confirmed Last Taken acetaminophen 325 mg tablet 325 mg PO Q6H PRN Pain 01/06/19 08/05/23 03/07/19 (Tylenol) 650 mg albuterol sulfate 90 mcg/actuation 2 puff inhalation DAILY PRN 01/06/19 08/05/23 03/07/19 aerosol inhaler Shortness Of Breath Or Wheezing hydrocodone 5 mg-acetaminophen 325 0.5 mg PO BID 01/06/19 08/05/23 03/08/19 mg tablet meloxicam 15 mg tablet 7.5 mg PO DAILY PRN Pain 01/06/19 08/05/23 03/07/19 prednisone 10 mg tablet See Rx Instructions .Route 07/31/23 08/05/23 Unknown .COMPLEX #39 tabs fluticasone furoate 200 1 inh inhalation DAILY 08/05/23 08/05/23 Unknown mcg-vilanterol 25 mcg/dose inhalation powder (Breo Ellipta) Active Medications Generic Name Dose Route Start Last Admin Trade Name Freq PRN Reason Stop Dose Admin Hydrocodone Bitart/Acetaminophen 1 tab 08/05/23 18:19 08/07/23 06:46 Hydrocodone/Acetamophen 5/325mg Tab PO 08/19/23 18:18 1 tab Q4H PRN Administration moderate pain 5,6,7 Albuterol 2 puffs 08/05/23 18:19 08/05/23 22:43 Albuterol Hfa 8 Gm Inhaler INH 09/04/23 18:18 2 puffs DAILY PRN Administration Shortness Of Breath Or Wheezing Fluticasone/Vilanterol 1 puffs 08/06/23 09:15 08/06/23 11:33 Fluticasone/Vilanterol 100/25mcg 14 Puffs/Inhaler INH 09/05/23 09:14 Not Given DAILY PAUL Folic Acid 1 mg 08/06/23 09:00 08/06/23 09:01 Folic Acid 1 Mg Tab PO 09/05/23 08:59 1 mg QAM PAUL Administration Prednisone 30 mg 08/06/23 09:00 08/06/23 09:01 Prednisone 10 Mg Tablet PO 08/13/23 08:59 40 mg DAILY PAUL Administration Taper Thiamine HCl 100 mg 08/06/23 09:00 08/06/23 09:01 Thiamine Hcl 100 Mg Tab PO 09/05/23 08:59 100 mg QAM PAUL Administration NPO Date Last Intake of Fluids: 08/06/23 Time Last Intake of Fluids: 19:30 Date Last Intake of Solids: 08/06/23 Time Last Intake of Solids: 19:30 Past Medical History Medical History Alcohol abuse Tobacco abuse Asthma Past Family History Family History Grandfather Coronary heart disease in his 30s Past Surgical History Surgical History History of repair of pyloric stenosis History of appendectomy Social History Smoking Status: Current every day smoker Smoking cigarettes per day: 10 Do You Dip or Chew Tobacco: Yes Hx Alcohol Use: Yes Alcohol type: beer alcohol intake frequency: 3 or more drinks per day Hx Substance Use: No substance use type: does not use Physical Exam Vital Signs Last Vital Signs Temp 97.7 F 08/07/23 08:39 Pulse 89 08/07/23 08:39 Resp 18 08/07/23 08:39 BP 123/84 08/07/23 08:39 Pulse Ox 98 08/07/23 08:39 O2 Del Method Room Air 08/07/23 08:39 Testing Laboratory Results 08/06/23 08:00 08/06/23 08:00 PT 10.7 Seconds (9.0-12.0) 08/06/23 08:00 INR 1.0 (0.9-1.1) 08/06/23 08:00 APTT 25.7 Seconds (21.0-31.0) 08/06/23 08:00 Electrocardiogram Date: 08/05/23 Normal sinus rhythm, rate 78 bpm Incomplete right bundle branch block Rightward axis Normal ECG No previous ECGs available Confirmed by Des Perez ([id number]) on 08/06/2023 7:59:04 AM Chest X-Ray Date: 08/05/23 Findings: + NAD Echocardiogram Date: 08/06/23 EF 60-65% LV wall motion is normal Normal LV relaxation No significant valvular pathology
--- NOTE | 2023-08-07 09:07 | History & Physical Bridge Note ---
Date of Service August 07, 2023 History & Physical Bridge Note I have examined the patient, reviewed the History & Physical and in the interval since the performance of the History & Physical I have noted the following changes of clinical significance: no changes noted Patient presents with severe left arm radiculopathy with progressive motor deficits. He is been evaluated by cardiology cleared for surgery and subsequently recommending emergent anterior cervical discectomy and fusion C6- C7. Hopefully this will halt the progression of neural damage and time improvement of strength.
[2023-08-07] MEDS ORDERED: SUGAMMADEX SODIUM 200 MG/2 ML VIAL IV ONE (09:10)
[2023-08-07] MEDS ORDERED: ceFAZolin 330 MG/ML 1 GM VIAL ONE (09:14)
[2023-08-07] MEDS ORDERED: ceFAZolin 2000MG 2,000 MG/15 ML SYR IV ONE (09:20)
[2023-08-07] MEDS ORDERED: ceFAZolin 2,000 MG/15 ML IV PUSH IV ONE (09:22)
[2023-08-07] MEDS ORDERED: FLOSEAL HEMOSTATIC MATRIX 10ML TOP ONE (10:14)
--- NOTE | 2023-08-07 10:55 | Operative Report ---
Post Operative Report Pre & Post Diagnosis Operation Date: 08/07/23 07:00 Pre-Op Diagnosis: C6-C7 disc herniation with radiculopathy and neurodeficit Post-Op Diagnosis: Same I identified the patient and participated in the time-out.: Yes Procedure Operation Date: 08/07/23 07:00 Actual Procedures #1 anterior cervical discectomy with bilateral foraminotomies C6-C7. #2 anterior cervical arthrodesis C6-C7. #3 placement of spiral 9 mm cage filled with I factor C6-C7. #4 placement of K2 M plate and screws across C6-C7. Surgeon Khari Carey, [employer] Darling Davila Estimated Blood Loss 10 Findings Consistent with Post-Op Diagnosis Specimens None Indications This is a 38-year-old male presents above-mentioned diagnosis and marked pain with progressive neural deficits. Subsequently is here for emergent anterior discectomy and fusion c 6 C7 Description of Procedure Patient was met with identified informed consent obtained. Patient was then taken to the operative suite underwent intubation anterior cervical spine was then prepped and draped normal sterile fashion. The assistance of fluoroscopy notify the C6-C7 and displacement transverse incision was placed along the right anterior aspect the cervical spine overlying this region. Placed in spine position the Edwar table with the head in the Pierce overhead garage door hanger. Blunt dissection with assistance of bipolar cautery was performed down to expose the anterior cervical spine at C6-7. A self-retaining retractor was placed. Then performed a complete discectomy of C6-C7 out to the uncovertebral joints bilaterally. Marydel distracting pins utilized to assist in visualization. Removed all posterior annular fibers and posterior longitudinal ligament. Significant amount of disc material was noted in the left neural foramen. It was removed in its entirety. The endplates were then burred to subcortical bleeding bone and a 9 mm Spira cage with I factor tapped in position. Distracting apparatus was removed and a K2 M plate and screws applied with the assistance of fluoroscopy. Incision was then copiously irrigated explored to ensure no damage to surrounding structures remaining bleeding. 10 round MIKE drain inserted. The incision was then closed with 2 Vicryl in the fascia and 4 Monocryl for final skin closure. Steri-Strips sterile dressing placed. Patient waken taken to PACU stable condition. Please note spinal cord monitoring was utilized at the procedure no changes noted. Lastly Darling Davila was present that the entire surgery and while the patient positioning complex portion of the surgery and final skin closure. I attest to the content of the Intraoperative Record and any orders documented therein. Any exceptions are noted below.
[2023-08-07] MEDS: fentaNYL citrate PF 100 MCG/2 ML VIAL IV PRN ×4 (11:15→11:43)
[2023-08-07] MEDS ORDERED: HYDROmorphone INJ 1 MG/ML SYRINGE ONE (11:46)
[2023-08-07] MEDS ORDERED: HYDROmorphone INJ 0.5 MG/0.5 ML SYR IV PRN (11:56)
--- NOTE | 2023-08-07 12:19 | Anesthesiology Progress Note ---
Date of Service August 07, 2023 Anesthesia Post Procedure Vital Signs Vital Signs: Temp Pulse Pulse Resp BP Pulse Ox O2 Del Method 08/07/23 12:10 97.5 F L 90 12 113/64 97 Nasal Cannula 08/07/23 12:00 83 19 99/75 L 96 Nasal Cannula 08/07/23 11:50 73 20 99/65 L 94 Nasal Cannula 08/07/23 11:40 83 19 111/78 97 Nasal Cannula 08/07/23 11:30 74 13 97/70 L 90 Room Air 08/07/23 11:20 73 12 105/73 99 Oxymask 08/07/23 11:10 97.2 F L 90 18 139/88 100 Oxymask 08/07/23 08:39 97.7 F 89 18 123/84 98 Room Air 08/07/23 08:07 98.2 F 80 16 124/81 96 Room Air 08/06/23 19:53 98.2 F 81 16 129/86 96 Room Air 08/06/23 15:15 98.6 F 89 18 148/79 H 96 Room Air O2 Flow Rate 08/07/23 12:10 3 08/07/23 12:00 3 08/07/23 11:50 2 08/07/23 11:40 2 08/07/23 11:30 08/07/23 11:20 4 08/07/23 11:10 6 08/07/23 08:39 08/07/23 08:07 08/06/23 19:53 08/06/23 15:15 Pain Intensity Neck: Pain Intensity: 5 Transfer of Care Handoff Completed per policy Notes Mental Status: alert / awake / arousable and participated in evaluation Patient Amnestic to Procedure: Yes Nausea / Vomiting: adequately controlled Pain: adequately controlled Airway Patency, RR, SpO2: stable & adequate BP & HR: stable & adequate Hydration State: stable & adequate Anesthetic Complications: no major complications apparent and Pt Satisfied with anesthetic care
[2023-08-07] MEDS ORDERED: HYDROmorphone INJ 1 MG/ML SYRINGE IV PRN (12:26)
[2023-08-07] MEDS ORDERED: METOCLOPRAMIDE HCL INJ 5 MG/ML 2 ML VIAL IV PRN (12:26)
[2023-08-07] MEDS ORDERED: traMADol HCL 50 MG TABLET PO PRN (12:26)
[2023-08-07] MEDS ORDERED: ALUMINUM/MAGNESIUM SUSP 30 ML UDC PO PRN (12:26)
[2023-08-07] MEDS ORDERED: LORazepam 0.5 MG TAB PO PRN (12:26)
[2023-08-07] MEDS ORDERED: FAMOTIDINE 20 MG TAB PO PRN (12:26)
[2023-08-07] MEDS ORDERED: hydrOXYzine HCl 25 MG TAB PO PRN (12:26)
[2023-08-07] MEDS ORDERED: diphenhydrAMINE Capsule 25 MG CAP PO PRN (12:26)
[2023-08-07] MEDS ORDERED: PROMETHAZINE HCL 12.5 MG in SODIUM CHLORIDE 0.9% 50 ML IV PRN (12:26)
[2023-08-07] MEDS ORDERED: ACETAMINOPHEN 500 MG TAB PO PRN (12:26)
[2023-08-07] MEDS ORDERED: dexAMETHasone 8 MG in SYRINGE 0 ML IV PRN (12:26)
[2023-08-07] MEDS ORDERED: MAGNESIUM HYDROXIDE SUSP 30 ML UDC PO PRN (12:26)
[2023-08-07] MEDS ORDERED: DO NOT ADMINISTER PNEUMOCOCCAL VACCINE PRN (12:26)
[2023-08-07] MEDS ORDERED: SOD PHOSPHATE/SOD BIPHOSPHATE ENEMA 132 ML BTL PR PRN (12:26)
[2023-08-07] MEDS ORDERED: LORazepam 0.5 MG in SYRINGE 0.25 ML IV PRN (12:26)
[2023-08-07] MEDS ORDERED: bisacodyL 10 MG SUPP PR PRN (12:26)
[2023-08-07] MEDS ORDERED: ONDANSETRON 4 MG OD TAB PO PRN (12:26)
[2023-08-07] MEDS ORDERED: NALOXONE HCL 0.4 MG/1 ML VIAL/CARP IV PRN (12:26)
[2023-08-07] MEDS ORDERED: RACEPINEPHRINE 2.25% NEBU SOLN 0.5 ML VIAL INH PRN (12:26)
[2023-08-07] MEDS ORDERED: ACETAMINOPHEN 1,000 MG/100 ML VIAL IV PRN (12:26)
[2023-08-07] MEDS ORDERED: DO NOT ADMINISTER FLU VACCINE PRN (12:26)
--- NOTE | 2023-08-07 12:27 | Fluoroscopy Report ---
INTRAOPERATIVE RADIOGRAPHS CLINICAL HISTORY: C6-C7 spinal fusion. Fluoro time: 21 second Ka,r: 2.62 mGy FINDINGS: 3 spot fluoroscopic views of the cervical spine are presented. There has been discectomy at C6-C7 with anterior fusion at this level. The orthopedic hardware appears intact. An endotracheal tu be is in place. IMPRESSION: Intraoperative images of the cervical spine as above. Electronically signed by: Randall Hu M.D. 08/07/2023 12:25 PM
[2023-08-07] MEDS: predniSONE 10 MG TABLET PO SCH (12:37)
[2023-08-07] MEDS: LACTATED RINGER'S 1,000 ML IV SCH ×2 (12:58→18:49)
[2023-08-07] MEDS: HYDROmorphone INJ 0.5 MG/0.5 ML SYR IV PRN ×2 (12:59→23:45)
[2023-08-07] MEDS: dexAMETHasone 6 MG in SYRINGE 0 ML IV SCH ×2 (13:01→20:03)
[2023-08-07] MEDS: FLUTICASONE/VILANTEROL 100/25MCG 14 PUFFS/INHALER INH SCH (13:05)
[2023-08-07] MEDS: oxyCODONE HCL IR 5 MG TAB (IMMEDIATE RELEASE) PO PRN ×2 (14:43→21:24)
[2023-08-07] MEDS: ceFAZolin 2000MG 2,000 MG/15 ML SYR IV SCH ×2 (16:51→23:36)
[2023-08-07] MEDS ORDERED: DOCUSATE SODIUM/SENNA 50/8.6MG TAB PO SCH (21:00)
[2023-08-08] MEDS: dexAMETHasone 6 MG in SYRINGE 0 ML IV SCH (05:26)
[2023-08-08] MEDS ORDERED: POLYETHYLENE (MIRALAX) 17 GM PACK PO SCH (06:00)
[2023-08-08] MEDS: oxyCODONE HCL IR 5 MG TAB (IMMEDIATE RELEASE) PO PRN (06:23)
[2023-08-08] MEDS: FLUTICASONE/VILANTEROL 100/25MCG 14 PUFFS/INHALER INH SCH (07:28)
[2023-08-08] MEDS: THIAMINE HCL 100 MG TAB PO SCH (07:28)
[2023-08-08] MEDS: FOLIC ACID 1 MG TAB PO SCH (07:28)
[2023-08-08 09:02] LABS: Hematocrit (blood only) 40.7 % (42.0-52.0); Mean Corpuscular Hemoglobin 30.8 pg (25.0-34.0); Mean Corpuscular Hgb Conc 34.4 g/dL (32.0-36.0); Mean Corpuscular Volume 89.6 fL (80.0-100.0); Mean Platelet Volume 10.1 fL (9.4-12.4); Platelet Count 282 K/uL (130-400); RDW Coefficient of Variation 11.8 % (11.5-14.5); RDW Standard Deviation 38.3 fL (36.4-46.3); Red Blood Count 4.54 M/uL (4.70-6.10); White Blood Count 16.38 K/ul (4.8-10.8)
--- NOTE | 2023-08-08 10:50 | Discharge Summary ---
Discharge Summary Date of Service August 08, 2023 Notes For Next Care Provider Medication Changes From Visit -Oxycodone 5mg q6h prn 30 tabs -Tramadol 50mg q6h prn 30 tabs Admission HPI Per Admitting Provider This is a 38-year-old male who has a significant past medical history of tobacco abuse, daily alcohol use and asthma who presents to ED secondary to worsening neck pain and left upper extremity paresthesias. 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 He states approximately 1 week ago he was involved in activity that may have strained his neck at work. Initially he did not have symptoms until 2 days later. He woke up and thought he may be, "slept on his neck wrong." Otherwise he has no known trauma or injury. He was seen and evaluated in ER on 07/31/2023 secondary to significant neck pain and underwent MRI for C-spine which revealed a left central/foraminal disc protrusion at C6-C7 resulting in severe left foraminal narrowing. At that time he received IV dexamethasone and was discharged home on oral prednisone after declining admission. Due to persistent symptoms despite treatment at home he opted to return to ED for further evaluation. He states he continues to have left-sided neck discomfort, elevated left shoulder compared to the right, medial aspect of left arm numbness and tingling that extends to fingers 3 and 5. Certain movements make pain significantly worse. He has been using ptoc-whs-fzunzew lidocaine patches, as needed diclofenac and hydrocodone that he has for his chronic back pain. The hydrocodone has been helpful keeping pain manageable. He also currently is on a prednisone taper which she was prescribed on 07/31/2023. Of significance patient follows with [facility] practice. He was seen and evaluated by [facility] cardiology at the end of June due to chest discomfort and shortness of breath. He has a strong family history of coronary artery disease with his grandfather having an IN in his 30s and his father suffering from collapse in his 50s of unknown etiology. He states the chest discomfort has significantly lessened over the last month. He describes it in his left chest wall as a, "deep." He states typically it comes on for 10 to 40 seconds before resolving on its own. It can occur at rest or with exertion. He only notices it 1-2 times a week now. He feels it likely is related to stress. It is not related to exertion. He recently has tried to increase his activity level and has been jogging a mile and does not notice any discomfort, shortness of breath, diaphoresis nausea or sweating. He is scheduled as an outpatient in August to undergo exercise stress testing. Admission Exam Per Admitting Provider Constitutional: WD/WN, vitals as above, NAD, sitting up in bed, pleasant, conversing easily Head: Normocephalic, Atraumatic Eyes: PERRL, conjunctivae normal, anicteric sclerae ENMT: external ear and nose normal, oropharynx normal Neck: trachea midline, no thyromegaly normal visual inspection Respiratory: normal respiratory effort, lungs clear to auscultation, no wheeze, rales, rhonchi. Normal insp/exp effort, no accessory muscle use Cardiovascular: RRR, no murmur, no edema Vessels: no JVD or carotid bruit Chest: normal inspection of chest Abdomen: normal bowel sounds, soft, nontender, no hepatosplenomegaly Musculoskeletal: no cyanosis or clubbing, Skin: no rashes, warm and dry normal turgor Neurologic: PERRL, EOMI, accommodation nl, no face palsy, no dysarthria CN's II-XI intact bilaterally and moves all extremities Psychiatric: A+Ox3, euthymic affect Lymphatic: no cervical or axillary lymphadenopathy : deferred Principal Dx & Hospital Course #1 = Principal Diagnosis (1) Herniation of intervertebral disc at C6-C7 level: (2) Asthma: (3) Tobacco abuse: Plan Mr. Aggarwal is a 38-year-old male who has a significant past medical history of tobacco abuse, daily alcohol use and asthma who presented to ED on 08/05 secondary to worsening neck pain and left upper extremity paresthesias and found to have cervical herniation with severe left arm radiculopathy. On 08/07, patient underwent emergent anterior discectomy and fusion of C6-C7. C Spine MRI -- IMPRESSION: 1. Left central/foraminal disc protrusion at C6- C7 resulting in severe left foraminal narrowing. Recommend correlation for symptoms.2. Otherwise, degenerative change of the cervical spine as described.3. Empty sella. Recommend clinical correlation. #Herniation of intervertebral disc at C6-C7 #Neck Pain with paresthesia POD 0 s/p #1 anterior cervical discectomy with bilateral foraminotomies C6-C7. #2 anterior cervical arthrodesis C6-C7. #3 placement of spiral 9 mm cage filled with I factor C6-C7. #4 placement of K2 M plate and screws across C6-C7. prn hydrocodone for moderate pain, Prn IV morphine for severe pain Monitor for post-op anemia, cbc in am PT/OT #History of atypical chest pain -EKG with NSR, incomplete RBBB, RAD -No chest pain with exertion, usually reproducible to palpation, runs 1 mile daily RCRI at this time 0 (no CHF, no hx of [place], CVD, no insulin, Cr <1.0) ECHO normal #Tobacco abuse encourage cessation nicotine patch offered, pt wishing to go w/o for now #Alcohol abuse pt drinks 6 beers/day AWSS per protocol daily thiamine, folic acid Asthma continue breo, prn albuterol no acute exac On day of discharge, patient ambulating well, fitted to c-collar support, and drain with drain in place. Patient cleared by Ortho for discharge home. Discharge Exam Constitutional WD/WN, vitals as above Respiratory normal respiratory effort, lungs clear to auscultation Cardiovascular RRR, no murmur, no edema Updated Medication List Medication Instructions Recorded Confirmed Type acetaminophen 325 mg tablet 325 mg PO Q6H PRN Pain 01/06/19 08/05/23 History (Tylenol) albuterol sulfate 90 mcg/actuation 2 puff inhalation DAILY PRN 01/06/19 08/05/23 History aerosol inhaler Shortness Of Breath Or Wheezing prednisone 10 mg tablet See Rx Instructions .Route 07/31/23 08/05/23 Rx .COMPLEX #39 tabs fluticasone furoate 200 1 inh inhalation DAILY 08/05/23 08/05/23 History mcg-vilanterol 25 mcg/dose inhalation powder (Breo Ellipta) oxycodone 5 mg tablet 5 mg PO Q6H PRN pain #30 tabs 08/07/23 Rx tramadol 50 mg tablet 50 mg PO Q6H PRN pain, moderate 08/07/23 Rx #30 tabs Hospital Stay Data Consultations 08/05/23 16:58 ED Decision to Admit Stat 08/05/23 17:02 Consult Orthopedic Spine Surgery Routine Procedures Performed Operation Date: 08/07/23 07:00 Actual Procedures p C6-C7 Anterior Cervical Discectomy Fusion - Khari Carey DO Diagnostic Imagining Performed 08/07/23 FL cervical 2-3V Routine Pending Results Patient Have Any Pending Studies at Discharge: No Discharge Instructions Given to Patient (Per Discharging Provider) ACTIVITY RECOMMENDATIONS: SELF CARE INSTRUCTIONS AFTER CERVICAL FUSIONS 1. No smoking. Smoking drastically decreases the chance of a solid fusion. 2. No bending, lifting more than 5 pounds, or twisting (roll like a log when turning in bed). 3. You may shower 3 days after surgery. Thoroughly dry wound. Do not soak in the tub. 4. Cervical collar: Must be worn at all times including sleeping. You may remove the brace only to bath, eat and if you are sitting in a recliner. 5. Please walk as much as you can for exercise. Gradually increase the distance that you walk as your endurance increases. SPECIAL CARE INSTRUCTIONS: VERY IMPORTANT TO READ AND REVIEW A. Do not take any anti-inflammatory medications (i.e. Indocin, Advil, Aspirin, Naprosyn, Aleve, Motrin, etc.) as these may inhibit the chance of a solid fusion. Tylenol is okay to take. B. Your surgical incision has been closed with a cosmetic suture under the skin that will dissolve in about 6 weeks. In 14 days, you can use a pair of clean scissors and cut the suture that is left outside of the skin at the ends of your incision. C. Complications are uncommon, but please contact us if you have any signs or symptoms of: 1. wound infection (fever higher than 102.5 degrees F, redness, separation of wound, drainage, or increasing pain from the incision) 2. blood clots in legs (pain, swelling, redness and warmth in legs) 3. urinary tract infection (fever higher than 102.5 degrees, burning upon urination or increased frequency of urination) 4. nerve problems (inability to walk on your toes or heels, numbness, loss of bowel or bladder control) 5. any other symptoms that concern you. D. Please call the office at if you have any concerns or questions about your operation or recovery. MANAGING PAIN AFTER SPINAL SURGERY 1. Narcotic medication is intended for short-term use and will be provided for surgical pain. Surgical pain usually lasts for a period of 4-6 weeks. Narcotic medication includes Percocet, Vicodin, Darvocet, Tylenol #3 or Lortab. 2. Longer-term pain is more appropriately treated with non-narcotic medication such as Tylenol ES. 3. Muscle spasm is not appropriately treated with narcotics. Muscle relaxers such as Soma, Flexeril or Skelaxin can be used along with Tylenol ES. 4. Remember that we all live with some "aches and pains". This is not unusual or uncommon after an injury or as we get older. 5. We will provide appropriate medication within the normal guidelines of their prescribed use. We will also be very cautious and aware of potential abuse and extended duration of patients' medication needs. 6. Please allow 2-3 days to process refills. Prescriptions will not be mailed but must be picked up at the office. FOLLOW UP VISIT: Keep your scheduled follow-up appointment. Any questions, please call the office at . Total Time Total Time Spent Total Time Spent (In Minutes): 35
--- NOTE | 2023-08-08 12:29 | Discharge Summary ---
Date of Service August 08, 2023 Admission HPI Per Admitting Provider This is a 38-year-old male who has a significant past medical history of tobacco abuse, daily alcohol use and asthma who presents to ED secondary to worsening neck pain and left upper extremity paresthesias. 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 He states approximately 1 week ago he was involved in activity that may have strained his neck at work. Initially he did not have symptoms until 2 days later. He woke up and thought he may be, "slept on his neck wrong." Otherwise he has no known trauma or injury. He was seen and evaluated in ER on 07/31/2023 secondary to significant neck pain and underwent MRI for C-spine which revealed a left central/foraminal disc protrusion at C6-C7 resulting in severe left foraminal narrowing. At that time he received IV dexamethasone and was discharged home on oral prednisone after declining admission. Due to persistent symptoms despite treatment at home he opted to return to ED for further evaluation. He states he continues to have left-sided neck discomfort, elevated left shoulder compared to the right, medial aspect of left arm numbness and tingling that extends to fingers 3 and 5. Certain movements make pain significantly worse. He has been using [id number] lidocaine patches, as needed diclofenac and hydrocodone that he has for his chronic back pain. The hydrocodone has been helpful keeping pain manageable. He also currently is on a prednisone taper which she was prescribed on 07/31/2023. Of significance patient follows with [facility] family practice. He was seen and evaluated by [facility] cardiology at the end of June due to chest discomfort and shortness of breath. He has a strong family history of coronary artery disease with his grandfather having an KS in his 30s and his father suffering from collapse in his 50s of unknown etiology. He states the chest discomfort has significantly lessened over the last month. He describes it in his left chest wall as a, "deep." He states typically it comes on for 10 to 40 seconds before resolving on its own. It can occur at rest or with exertion. He only notices it 1-2 times a week now. He feels it likely is related to stress. It is not related to exertion. He recently has tried to increase his activity level and has been jogging a mile and does not notice any discomfort, shortness of breath, diaphoresis nausea or sweating. He is scheduled as an outpatient in August to undergo exercise stress testing. 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 Discharge Data Allergies Allergy/AdvReac Type Severity Reaction Status Date / Time No Known Allergies Allergy Severe Verified 03/08/19 14:01 Consultations 08/05/23 16:58 ED Decision to Admit Stat 08/05/23 17:02 Consult Orthopedic Spine Surgery Routine Procedures Performed Operation Date: 08/07/23 07:00 Actual Procedures p C6-C7 Anterior Cervical Discectomy Fusion - Khari Carey DO Ordered Studies 08/07/23 [place] cervical 2-3V Routine Hospital Course (1) Herniation of intervertebral disc at C6-C7 level: Patient was admitted with severe cervical radiculopathy and weakness affecting left upper extremity. After undergoing medical clearance she underwent emergent anterior cervical discectomy and fusion C6-C7 to preserve neurologic function. Postop day #1 of swallowing well. No hoarseness. Arm pain markedly improved. Strength improved. MIKE drain decreased probably. Sepsis discharge home. Discharge orders instructions from the chart for further review. Total Time Total Time Spent Total Time Spent (In Minutes): 20 minutes Discharge Plan Discharge Items Patient Disposition: Home - Self-Care Reason For Visit: CERVICAL DISC HERNIATION Discharge Diagnosis: Cervical disc herniation with radiculopathy neurologic deficit Activity: As commented below Non-emergency contact: Primary Care Provider Call non-emergency contact if: you have any medication questions Follow-up/Referrals: PCP,NO [Primary Care Provider] - (SPOKE WITH PATIENT; HIS PCP IS [facility]. HE WILL MAKE A HOSPITAL FOLLOW UP VISIT IN 7-10 BUSINESS DAYS.) Diet: Regular Addtl Attending Provider Instructions: ACTIVITY RECOMMENDATIONS: SELF CARE INSTRUCTIONS AFTER CERVICAL FUSIONS 1. No smoking. Smoking drastically decreases the chance of a solid fusion. 2. No bending, lifting more than 5 pounds, or twisting (roll like a log when turning in bed). 3. You may shower 3 days after surgery. Thoroughly dry wound. Do not soak in the tub. 4. Cervical collar: Must be worn at all times including sleeping. You may remove the brace only to bath, eat and if you are sitting in a recliner. 5. Please walk as much as you can for exercise. Gradually increase the distance that you walk as your endurance increases. SPECIAL CARE INSTRUCTIONS: VERY IMPORTANT TO READ AND REVIEW A. Do not take any anti-inflammatory medications (i.e. Indocin, Advil, Aspirin, Naprosyn, Aleve, Motrin, etc.) as these may inhibit the chance of a solid fusion. Tylenol is okay to take. B. Your surgical incision has been closed with a cosmetic suture under the skin that will dissolve in about 6 weeks. In 14 days, you can use a pair of clean scissors and cut the suture that is left outside of the skin at the ends of your incision. C. Complications are uncommon, but please contact us if you have any signs or symptoms of: 1. wound infection (fever higher than 102.5 degrees F, redness, separation of wound, drainage, or increasing pain from the incision) 2. blood clots in legs (pain, swelling, redness and warmth in legs) 3. urinary tract infection (fever higher than 102.5 degrees, burning upon urination or increased frequency of urination) 4. nerve problems (inability to walk on your toes or heels, numbness, loss of bowel or bladder control) 5. any other symptoms that concern you. D. Please call the office at if you have any concerns or questions about your operation or recovery. MANAGING PAIN AFTER SPINAL SURGERY 1. Narcotic medication is intended for short-term use and will be provided for surgical pain. Surgical pain usually lasts for a period of 4-6 weeks. Narcotic medication includes Percocet, Vicodin, Darvocet, Tylenol #3 or Lortab. 2. Longer-term pain is more appropriately treated with non-narcotic medication such as Tylenol ES. 3. Muscle spasm is not appropriately treated with narcotics. Muscle relaxers such as Soma, Flexeril or Skelaxin can be used along with Tylenol ES. 4. Remember that we all live with some "aches and pains". This is not unusual or uncommon after an injury or as we get older. 5. We will provide appropriate medication within the normal guidelines of their prescribed use. We will also be very cautious and aware of potential abuse and extended duration of patients' medication needs. 6. Please allow 2-3 days to process refills. Prescriptions will not be mailed but must be picked up at the office. FOLLOW UP VISIT: Keep your scheduled follow-up appointment. Any questions, please call the office at . Pending Studies at Discharge: No Stand-Alone Forms: My [facility], Pain - Opioid Pain Management, Smoking Cessation Medications and DC Order Prescriptions: New tramadol 50 mg tablet 50 mg PO Q6H PRN (Reason: pain, moderate) Qty: 30 0RF oxycodone 5 mg tablet 5 mg PO Q6H PRN (Reason: pain) Qty: 30 0RF Continued acetaminophen [Tylenol] 325 mg Tablet 325 mg PO Q6H PRN (Reason: Pain) albuterol sulfate 90 mcg/actuation HFA aerosol inhaler 2 puff inhalation DAILY PRN (Reason: Shortness Of Breath Or Wheezing) prednisone 10 mg tablet See Rx Instructions .ROUTE .COMPLEX Qty: 39 0RF Rx Instructions: 50mg x3d, 40mg x3d, 30mg x2d, 20mg x2d, 10mg x2d fluticasone furoate-vilanterol [Breo Ellipta] 200-25 mcg/dose blister with device 1 inh INHALATION DAILY Discontinued hydrocodone-acetaminophen 5-325 mg tablet 0.5 mg PO BID meloxicam 15 mg tablet 7.5 mg PO DAILY PRN (Reason: Pain) Discharge Orders: Discharge Order (Routine); Ordered 08/08/23 Ordered By: Khari Albarado/Other Patient Handouts: Spinal Fusion: Cervical Admission Data Admit Date/Time: 08/05/23 17:02 Attending Provider: Katie Henderson Admit Provider: Izzy Fink Primary Care Provider: PCP,NO Other Providers: Izzy Fink; Khari Carey; [facility]
== END 2023-08-08 11:29 | disposition home or self-care (01) | DRG 473 ==
LOC: ED 16:07 → SUATTDRO 17:02 → 3E 17:02